=== PATIENT | female | born 2005 | race Caucasian/White ===

== ENCOUNTER 2025-04-11 20:19 | Emergency (ER) | payer OTHER, SELFPAY ==
[2025-04-11 20:19] VITALS: BP 147/105; PULSE 105; RESP 18; TEMP 36.8; O2SAT 99; BMI 40.8
--- NOTE | 2025-04-11 20:38 | EX.ED.DYSGE1 ---
HPI History of Present Illness Chief Complaint: Burn Narrative Narrative: Patient is a 19-year-old female with no known significant past medical history who presented to the emergency department with pain to her 3rd and 4th finger on her right hand. She states that she was using a glue gun when the glue came out of the gun burning in her fingers. She states that this happened about 40 minutes prior to her arrival. States that she is unsure when her last tetanus shot and states that she not taken thing for pain as she came here straight from work. PFSH PFSH Medical History no medical history Home Medications ?Medication ?Instructions ?Recorded ?Last Taken ?Type NK 04/11/25 Unknown History Allergy/AdvReac Type Severity Reaction Status Date / Time No Known Allergies Allergy Verified 04/11/25 20:21 Family History no significant family his Surgical History no surgical history Social History Smoking Status: Never smoker ROS ROS ED ROS Narrative Neurological: Denies any numbness, wheeze, tingling Musculoskeletal: Complains of finger pain as noted above from the hot glue Skin: Complains of a burning sensation to her fingers EXAM Physical Exam Narrative Exam Narrative: General: Patient was lying in bed did appear to be uncomfortable secondary to the pain Head: Atraumatic, normocephalic Eyes: PERRL bilaterally, EOMI bilaterally no conjunctival injection noted Neck: Soft, supple, trachea midline Cardiovascular: Patient tachycardic Extremities: Radial pulses +2/4 in the bilateral extremities, +5/5 strength noted in the bilateral lower extremities Neurological: Patient following commands knew that she was at [facility] year is 2024 sensation grossly intact in the median ulnar radial nerve distribution bilaterally Skin: Warm, dry, patient has evidence of first-degree burn. To her 3rd and 4th digits from the hot glue gun. Patient does have evidence of superficial blister developing on her third finger. Const Vital Signs: 04/11/25 20:19 Temperature 98.2 F Temperature Source Oral Pulse Rate 105 H Respiratory Rate 18 Blood Pressure 147/105 H Blood Pressure Mean 119 Pulse Ox 99 Oxygen Delivery Method Room Air MDM MDM MDM Narrative Medical decision making narrative: Patient is a 19-year-old female who presents to the emergency department the chief complaint of finger pain on her right hand and 3rd and 4th digit is from the hot glue gun with evidence of first-degree burn. Patient's tetanus shot will be updated here in the emergency department. She was given a [place] and Zofran and was advised to rotate Tylenol ibuprofen [id number] when she does extremity 3#pain. She was advised to keep an eye on her fingers and watch it for signs of infection if this does occur she was advised to return to the emergency department otherwise she is to follow-up with corporate care/Workmen's Comp. She is agreeable this plan as well as her coworker at bedside. All question concerns answered she was discharged home in stable condition. Discharge Plan Triage Chief Complaint: Burn ED Provider: Juice Herrera Dx/Rx/DC Orders Clinical Impression: First degree burn multiple fingers right hand not including thumb, Encounter for medical screening examination Prescriptions: No Action NK Primary Care Provider: NOT,DEFINED Referrals: NOT,DEFINED [Primary Care Provider] - Corporate,Care [Group of Physicians] - Activity Restrictions/Additional Instructions: Follow-up with Workmen's Comp. Watch out for signs of infection on these fingers such as surrounding redness purulent drainage from the site, whole finger swelling redness being very painful if these are to occur return to the emergency department. When you go to workmen's comp and they do a drug test you need to to let them know that you were given a opiate for pain control in the emergency department as this will show up in your urine. Print Language: Hebrew Disposition Disposition: Home, Self Care
[2025-04-11] MEDS: HYDROcodone Bitartrate/Apap 5/325 Tablet PO (20:44)
== END 2025-04-11 22:36 | disposition home or self-care (01) ==
LOC: ED 20:51
PROVIDERS: Emergency Provider Emergency Medicine; Visit Provider Emergency Medicine
DX: T23.131A Burn of first degree of multiple right fingers (nail), not including thumb, initial encounter (principal); X19.XXXA Contact with other heat and hot substances, initial encounter; Y99.0 Civilian activity done for income or pay
CPT/HCPCS: 90715; 99282